=== PATIENT | female | born 1990 | race Caucasian/White ===

== ENCOUNTER 2021-06-13 12:57 | Outpatient (REF) | payer OTHER, SELFPAY ==
[2021-06-16 01:45] LABS: HPV mRNA E6/E7 Not Detected (Not Detected)
== END 2021-06-13 12:58 | disposition home or self-care (01) ==
LOC: HO.LAB 12:57
PROVIDERS: Visit Provider Obstetrics & Gynecology
DX: Z01.419 Encounter for gynecological examination (general) (routine) without abnormal findings (principal)
CPT/HCPCS: 87624; 88142

== ENCOUNTER 2023-11-27 09:37 | Outpatient (AMB) | payer OTHER, SELFPAY ==
--- NOTE | 2023-11-27 09:45 | MHC.OFFVIS ---
Vital Signs 11/27/23 09:46 Height 5 ft 5 in Weight 187 lb BMI 31.1 BP 116/70 Intake Visit Reasons: irregular menses Medical Esthetician Required: No Medical Esthetician Services: Medical Esthetician Present Information Interpreted: clinical only Park Landscape Architect: Park Landscape Architect Present Allergies No Known Allergies [No Known Allergies*] Allergy (Verified 11/27/23 09:48) Medication List - Last Reconciled 11/27/23 by Sharri Mckeon CNM copper (ParaGard T 380A) intrauterine Is last menstrual period known: Yes Last menstrual period: 11/26/23 Do you need a note to return to daycare/school/sports/work: No HPI HPI irregular menses: Details: Patient is here to discuss her IUD and irregular menses. She has noticed her menses which used to be very regular becoming more irregular recently she went through her phone and gave me the dates of her menstrual cycles as follows for the last 6 months June 23 to July 24 to , arriving on day August 20 to arriving on day September 13 to arriving on day October 21 to arriving on day 39 November 25 yesterday arriving on day 32. PFSH Family History Paternal Grandmother Colon cancer Social History Patient Tobacco Use Status: Never used Tobacco Female Reproductive History Menstrual Age of Menarche: 9 Duration of menses: other Date of last menstrual period: 11/26/23 control method: copper IUCD Total pregnancies: 2 Full term: 1 Date of last pap smear: 06/14/21 (negative) Physical Exam Vital Signs: Last Vital Signs BP 116/70 11/27/23 09:46 BMI result Body Mass Index 31.1 Assessment & Plan Assessment & Plan (1) IUD complication: Comment: [facility] Menses have become more irregular intermenstrual spotting and some pain and discomfort recently. Code(s): T83.9XXA - Unspecified complication of genitourinary prosthetic device, implant and graft, initial encounter Category: Medical (2) Menstrual periods irregular: Comment: Last 6 months cycles ranging from 25-39 days average 29-32. Code(s): N92.6 - Irregular menstruation, unspecified Category: Medical (3) H/O ovulatory bleeding: Code(s): Z87.42 - Personal history of other diseases of the female genital tract Category: Medical (4) Pelvic pain: Comment: Recent discomfort has ParaGard IUD Code(s): R10.2 - Pelvic and perineal pain Category: Medical Plan Discussed her history and symptoms at length. She has the ParaGard IUDs since [facility] (which when she mentioned did today brought her to tears.) She does have a therapist and will explore feelings about that with her. She has been noticing her periods becoming more regular and the. More recently that was 39 days in length had her most concerned she did get her period yesterday on day 32 of her cycle. She has also been having little bit more discomfort and also has occasionally had intermenstrual ovulatory spotting. She likes the ParaGard IUD because she Does not want hormones in her body her only other medication is CVD which she uses for control of seizures and the only time that she had a seizure in the last year about a year ago was when she was using her medication/CBD less regularly. She has in a new relationship for the last year and taking good care of herself and has lost weight and feels good she is lost about 30 lb. Discussed factors that could contribute to all of the above discussed some menstrual irregularity discussed in general that it is good that she has lost weight discussed that it would be wolfe to get an ultrasound to check on position of the IUD perhaps it is slipping down and that is why it has a little bit more uncomfortable and perhaps may account for some spotting if it is slipping down it needs to be replaced if that is what she would want for of methods and it is. She also was trying to get seen and had difficulty getting through the front office at the hospital however she also in time [facility] and I recommend she keep that appointment but in the meantime I am ordering an ultrasound hopefully that will be done urgently within the next week or so and then she and I can either tele visit after to review if she can get a [facility] sooner that is all to the good she would need to otherwise sign a form here to order a new 1 but since we do not know that that has the issue at this point we did not act on it today although it was offered. We will have a tele visit after the ultrasound.. Orders: Orders US pelvic and transvaginal Today T83.9XXA - Unspecified complication of genitourinary prosthetic device, implant and graft, initial encounter Coding Level of Care Code Est Pt Level 3 (18091) Diagnoses IUD complication T83.9XXA Menstrual periods irregular N92.6 H/O ovulatory bleeding Z87.42 Pelvic pain R10.2
[2023-11-27 09:46] VITALS: BP 116/70; BMI 31.1
== END 2023-11-27 10:46 | disposition home or self-care (01) ==
LOC: HO.HWSM 09:37
PROVIDERS: Visit Provider Advanced Practice Midwife
DX: T83.9XXA Unspecified complication of genitourinary prosthetic device, implant and graft, initial encounter (principal); N92.6 Irregular menstruation, unspecified; Z87.42 Personal history of other diseases of the female genital tract; R10.2 Pelvic and perineal pain
CPT/HCPCS: 99213

== ENCOUNTER → 2023-11-27 09:37 | Outpatient (BNVA) | payer OTHER, SELFPAY | PROVIDERS: Visit Provider Advanced Practice Midwife ==

== ENCOUNTER 2023-11-29 11:44 | Outpatient (REF) | payer OTHER, SELFPAY ==
--- NOTE | ~2023-11-29 | US_ITS ---
EXAMINATION: ULTRASOUND PELVIC, COMPLETE CLINICAL INFORMATION: Additional Notes/Special Instructions Has ParaGard IUDs since 2020 recently has some more discomfort and menses becoming more irregular. Please do within next week. : COMPARISON: None. TECHNIQUE: Pelvic ultrasound was performed using transvaginal and transabdominal technique without spectral doppler. FINDINGS: The uterus appears normal measuring 8.9 x 4.3 x 5.0 cm. There is an IUD that appears appropriately positioned. The right ovary appears normal measuring 3.9 x 1.9 x 2.7 cm. The left ovary appears normal measuring 3.5 x 2.5 x 3.2 cm. No free fluid. US/US pelvic and transvaginal IMPRESSION: The IUD appears appropriately positioned.
== END 2023-11-29 11:45 | disposition home or self-care (01) ==
LOC: HO.US 11:44
PROVIDERS: Visit Provider Advanced Practice Midwife
DX: T83.9XXA Unspecified complication of genitourinary prosthetic device, implant and graft, initial encounter (principal)
CPT/HCPCS: 76830; 76856

== ENCOUNTER 2023-12-05 13:00 | Outpatient (AMB) | payer OTHER, SELFPAY ==
--- NOTE | 2023-12-05 13:00 | A.OFFVIS_ITS ---
Intake Visit Reasons: TV Ultrasound Follow up Allergies No Known Allergies [No Known Allergies*] Allergy (Verified 12/05/23 13:00) Is last menstrual period known: Yes Last menstrual period: 12/22/23 HPI HPI TV Ultrasound Follow up: Details: Patient is and a tele visit to discuss her ultrasound results which was done to investigate intermenstrual bleeding with ovulation and to see really if her IUD had become dislodged she has a ParaGard IUD she was seen on Sunday last week the ultrasound was done and this is the visit to review it. PFSH Family History Paternal Grandmother Colon cancer Social History Patient Tobacco Use Status: Never used Tobacco Female Reproductive History Menstrual Age of Menarche: 9 Date of last menstrual period: 12/22/23 control method: copper IUCD Telehealth Telehealth Telehealth Platform: Telephone Location of provider rendering services: practice address Location of patient: other (Patient was actually outside the hospital the [facility]...) Patient Identification confirmed using: Name, : Yes Telehealth method: voice only Patient verbally consented to treatment: Yes Patient verbally consented to billing insurance company: Yes Patient informed of any privacy concerns related to visit: Yes Minutes spent on Phone/Video with Pt.: 20 Results Reviewed Results Reviewed: Patient: Joseph Irby MR#: [id number] : 1990 Acct:[id number] Age/Sex: 33 / F ADM/SER Date: 11/27/23 Loc: [facility] ADM/SER Time:936 Attending Provider: Sharri Mckeon CNM cc: Physician,None ~ Vital Signs 11/26/2408:46 Height 5 ft 5 in Weight 187 lb BMI 31.1 BP 116/70 Intake Visit Reasons: irregular menses Transaction Coordinator Required: No Transaction Coordinator Services: Transaction Coordinator Present Information Interpreted: clinical only Cottage Cheese Maker: Cottage Cheese Maker Present Allergies No Known Allergies [No Known Allergies*] Allergy (Verified 11/27/23 09:48) Medication List - Last Reconciled 11/27/23 by Sharri Mckeon CNM copper (ParaGard T 380A) intrauterine Is last menstrual period known: Yes Last menstrual period: 11/26/23 Do you need a note to return to daycare/school/sports/work: No HPI HPI irregular menses: Details: Patient is here to discuss her IUD and irregular menses. She has noticed her menses which used to be very regular becoming more irregular recently she went through her phone and gave me the dates of her menstrual cycles as follows for the last 6 months June 23 to July 24 to , arriving on day August 20 to arriving on day September 13 to arriving on day October 21 to arriving on day 39 November 25 yesterday arriving on day 32. PFSH Family History Paternal Grandmother Colon cancer Social History Patient Tobacco Use Status: Never used Tobacco Female Reproductive History Menstrual Age of Menarche: 9 Duration of menses: other Date of last menstrual period: 11/26/23 control method: copper IUCD Total pregnancies: 2 Full term: 1 Date of last pap smear: 06/14/21 (negative) Physical Exam Vital Signs: Last Vital Signs BP 116/70 11/27/23 09:46 BMI result Body Mass Index 31.1 Assessment & Plan Assessment & Plan (1) IUD complication: Comment: [facility] Menses have become more irregular intermenstrual spotting and some pain and discomfort recently. Code(s): T83.9XXA - Unspecified complication of genitourinary prosthetic device, implant and graft, initial encounter Category: Medical (2) Menstrual periods irregular: Comment: Last 6 months cycles ranging from 25-39 days average 29-32. Code(s): N92.6 - Irregular menstruation, unspecified Category: Medical (3) H/O ovulatory bleeding: Code(s): Z87.42 - Personal history of other diseases of the female genital tract Category: Medical (4) Pelvic pain: Comment: Recent discomfort has ParaGard IUD Code(s): R10.2 - Pelvic and perineal pain Category: Medical Plan Discussed her history and symptoms at length. She has the ParaGard IUDs since [facility] (which when she mentioned did today brought her to tears.) She does have a therapist and will explore feelings about that with her. She has been noticing her periods becoming more regular and the. More recently that was 39 days in length had her most concerned she did get her period yesterday on day 32 of her cycle. She has also been having little bit more discomfort and also has occasionally had intermenstrual ovulatory spotting. She likes the ParaGard IUD because she Does not want hormones in her body her only other medication is CVD which she uses for control of seizures and the only time that she had a seizure in the last year about a year ago was when she was using her medication/CBD less regularly. She has in a new relationship for the last year and taking good care of herself and has lost weight and feels good she is lost about 30 lb. Discussed factors that could contribute to all of the above discussed some menstrual irregularity discussed in general that it is good that she has lost weight discussed that it would be wolfe to get an ultrasound to check on position of the IUD perhaps it is slipping down and that is why it has a little bit more uncomfortable and perhaps may account for some spotting if it is slipping down it needs to be replaced if that is what she would want for of methods and it is. She also was trying to get seen and had difficulty getting through the front office at the hospital however she also in time [facility] and I recommend she keep that appointment but in the meantime I am ordering an ultrasound hopefully that will be done urgently within the next week or so and then she and I can either tele visit after to review if she can [facility] a [facility] that is all to the good she would need to otherwise sign a form here to order a new 1 but since we do not know that that has the issue at this point we did not act on it today although it was offered. We will have a tele visit after the ultrasound.. Orders: Orders US pelvic and transvaginal Today T83.9XXA - Unspecified complication of genitourinary prosthetic device, implant and graft, initial encounter Coding Level of Care Code Est Pt Level 3 (11203) Diagnoses IUD complication T83.9XXA Menstrual periods irregular N92.6 H/O ovulatory bleeding Z87.42 Pelvic pain R10.2 Documented By: Sharri Mckeon CNM 11/27/23 0945 Signed By: <Electronically signed by Sharri Mckeon> --- [address] [address] Ultrasound Report Signed Patient: Joseph Irby MR#: [id number] : 1990 Acct:[id number] Age/Sex: 33 / F ADM Date: 11/29/23 Loc: .[place] Attending Dr: Sharri Mckeon CNM Ordering Physician: Sharri Mckeon CNM Date of Service: 11/29/23 Procedure(s): US pelvic and transvaginal Accession Number(s): [id number] cc: Sharri Mckeon CNM~ EXAMINATION: ULTRASOUND PELVIC, COMPLETE CLINICAL INFORMATION: Additional Notes/Special Instructions Has ParaGard IUDs since 2020 recently has some more discomfort and menses becoming more irregular. Please do within next week. : COMPARISON: None. TECHNIQUE: Pelvic ultrasound was performed using transvaginal and transabdominal technique without spectral doppler. FINDINGS: The uterus appears normal measuring 8.9 x 4.3 x 5.0 cm. There is an IUD that appears appropriately positioned. The right ovary appears normal measuring 3.9 x 1.9 x 2.7 cm. The left ovary appears normal measuring 3.5 x 2.5 x 3.2 cm. No free fluid. US/US pelvic and transvaginal IMPRESSION: The IUD appears appropriately positioned. Dictated By: Timur Mazariegos MD Signed By: <Electronically signed by Timur Mazariegos MD in OV> 11/29/23 1510 DD/ 1210 TD/TT: Field Mechanical Meter Tester: KENISHA Assessment & Plan Assessment & Plan (1) H/O ovulatory bleeding: Code(s): Z87.42 - Personal history of other diseases of the female genital tract Category: Medical (2) IUD complication: Comment: [facility]Gard [facility] Menses have become more irregular intermenstrual spotting and some pain and discomfort recently. IUD IS IN PROPER POSITION FOR 11/28 ULTRASOUND. PATIENT IS FINE.... Code(s): T83.9XXA - Unspecified complication of genitourinary prosthetic device, implant and graft, initial encounter Category: Medical Plan REVIEWED HER ULTRASOUND IN THE VISIT IN HER ISSUES IN DETAIL. Discussed planning for future pregnancies and removal of the IUD when she is ready and discussed have exactly how we do it. Her ultrasound shows that her uterus her ovaries and position of the IUD is absolutely the way it needs to be. Discussed readiness and self-care. She is going to schedule an annual exam coming up and she will [facility] which she also had on the books just in case we could not see her in time and she did the IUD to be removed quickly. We will see her for an annual and Pap whenever it is convenient. Coding Level of Care Code Tele Est Pt Level 3 (15343) Diagnoses H/O ovulatory bleeding Z87.42 IUD complication T83.9XXA
== END 2023-12-05 13:41 | disposition home or self-care (01) ==
LOC: HO.HWSM 13:00
PROVIDERS: Visit Provider Advanced Practice Midwife
DX: Z87.42 Personal history of other diseases of the female genital tract (principal); T83.9XXA Unspecified complication of genitourinary prosthetic device, implant and graft, initial encounter
CPT/HCPCS: 99213

== ENCOUNTER → 2023-12-05 13:00 | Outpatient (BNVA) | payer OTHER, SELFPAY | PROVIDERS: Visit Provider Advanced Practice Midwife ==

== ENCOUNTER 2024-07-11 09:05 | Emergency (ER) | payer MEDICAID, SELFPAY ==
--- NOTE | 2024-07-11 | ECG_ITS ---
Test Reason : SEIZURE Blood Pressure : */* mmHG Vent. Rate : 96 BPM Atrial Rate : 96 BPM P-R Int : 132 ms QRS Dur : 86 ms QT Int : 348 ms P-R-T Axes : 46 32 47 degrees QTcB Int : 439 ms Normal sinus rhythm Normal ECG When compared with ECG of 07-Sep-2017 12:41, Nonspecific T wave abnormality no longer evident in Anterior leads Referred By: Generic ED Physician Electronically Signed By: Vance Driver
--- NOTE | ~2024-07-11 | CT_ITS ---
EXAMINATION: CT HEAD WITHOUT CONTRAST CLINICAL INFORMATION: Seizure, fall. COMPARISON: 01/04/2013. MR brain 10/14/2017. TECHNIQUE: Contiguous axial imaging was performed from the skull base to vertex without intravenous administration of contrast. This CT examination was performed using dose optimization techniques as appropriate, variously including the following: *Automated exposure control *Adjustment of mA and/or kV according to patient size (this includes techniques or standardized protocols for targeted exams where dose is matched to indication/reason for exam; i.e. extremities or head) *Use of iterative reconstruction technique FINDINGS: There is no evidence of intracranial hemorrhage or extra-axial fluid collection. There is no mass effect, or edema. No CT evidence of acute territorial infarct. Ventricles, sulci, and cisterns are normal in size and configuration for patient age. No hydrocephalus. No midline shift. Negative hyperdense MCA sign. Negative insular ribbon sign. No significant white matter abnormalities. 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 Normal pituitary. Globes and orbital contents image normally. No extracranial soft tissue abnormalities. The paranasal sinuses, mastoid air cells, and tympanic cavities are normally aerated. No suspicious bony abnormalities. There are no acute fractures evident. CT/CT head/brain wo IV con IMPRESSION: 1. No acute intracranial abnormality. No fracture seen. 2. Stable pineal cyst, benign. Electronically signed by: Garett Velazquez MD 07/11/2024 11:53 AM [facility]
--- NOTE | ~2024-07-11 | CT_ITS ---
EXAMINATION: CT CERVICAL SPINE WITHOUT CONTRAST CLINICAL INFORMATION: Status post fall. Seizure. COMPARISON: None available. TECHNIQUE: Contiguous axial images through the cervical spine using 3 mm collimation with bone and soft tissue algorithm. Sagittal and coronal reformatted images acquired. This CT examination was performed using dose optimization techniques as appropriate, variously including the following: *Automated exposure control *Adjustment of mA and/or kV according to patient size (this includes techniques or standardized protocols for targeted exams where dose is matched to indication/reason for exam; i.e. extremities or head) *Use of iterative reconstruction technique DLP: 390.32 mGy centimeters FINDINGS: Craniocervical junction is intact. C1 is intact. C2 is intact. C3 is intact. C4 is intact. C5 is intact. C6 is intact. C7 is intact. Reverse curvature apex at C5-6 which could be positional. Normal alignment between the vertebral bodies and the facet joints. No gross prevertebral compartment hematoma. The thyroid gland is not enlarged. No gross dominant nodule.. CT/CT cervical spine wo IV con IMPRESSION: No acute fracture or trauma-related listhesis Fleischner guidelines were followed. Electronically signed by: Joshua Sadler MD 07/11/2024 11:55 AM [facility]
[2024-07-11 09:10] VITALS: BP 138/93; PULSE 124; O2SAT 96; BMI 35.7
[2024-07-11 09:16] VITALS: BP 120/78; PULSE 101; RESP 98; TEMP 36.6; O2SAT 100
[2024-07-11 09:29] LABS: MANUAL DIFF FLAG NO
[2024-07-11 09:30] LABS: Basophils Percent Auto 0.5 % (0-2); Eosinophils Absolute Auto 0.4 X10*3/uL (0.0-0.4); Eosinophils Percent Auto 6.5 % (0-4); Hematocrit 40.9 % (37.0-47.0); Hemoglobin 13.9 g/dl (12.0-16.0); Imm Gran Abs Auto 0.01 X10*3/uL (0.00-0.03); Imm Gran Pct Auto 0.2 % (0.0-0.4); Lymphocytes Absolute Auto 1.8 X10*3/uL (1.2-4.9); Lymphocytes Percent Auto 29.9 % (20-40); Mean Corpuscular Hemoglobin 32.1 pg (27.0-33.0); Mean Corpuscular Volume 94.5 fL (80.0-98.0); Mean Platelet Volume 8.3 fL (9.4-12.3); Monocytes Absolute Auto 0.4 X10*3/uL (0.1-1.2); Monocytes Percent Auto 7.5 % (2-11); Neutrophils Absolute Auto 3.3 x10*3/uL (2.0-8.3); Neutrophils Percent Auto 55.4 % (45-73); Platelet Count 318 X10*3/uL (160-400); Red Blood Count 4.33 X10*6/uL (4.20-5.50); Red Cell Distribution Width 13.1 % (11.0-16.0); White Blood Count 5.9 X10*3/uL (4.8-10.8)
[2024-07-11 09:54] LABS: Alanine Aminotransferase 20 U/L (0-31); Albumin Level 3.8 g/dL (3.5-5.0); Alkaline Phosphatase 43 U/L (39-117); Anion Gap 13 (12-20); Aspartate Amino Transferase 31 U/L (5-31); Bilirubin Direct < 0.2 mg/dL (0.0-0.5); Bilirubin Total 0.2 mg/dL (0.0-1.0); Blood Urea Nitrogen 13 mg/dL (9-16); Calcium 8.3 mg/dL (8.4-10.2); Carbon Dioxide 16 mmol/L (22-29); Chloride 112 mmol/L (96-108); Estimated Glomerular Filt Rate > 60; Glucose Random 95 mg/dL (60-115); Magnesium 2.2 mg/dL (1.6-2.6); Potassium 4.3 mmol/L (3.3-5.1); Sodium 137 mmol/L (135-145); Total Protein 6.9 g/dL (6.5-8.0)
[2024-07-11 09:59] VITALS: BP 120/80; PULSE 84; RESP 16; O2SAT 99
[2024-07-11 09:59] LABS: HCG Quantitative < 2 mIU/mL
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
--- NOTE | 2024-07-11 11:12 | ED_ITS ---
HPI - General Adult General Chief complaint: Seizure Stated complaint: KAITY SEIZURE HX OF SEIZURE NO MEDS PER EMS Time Seen by Provider: 07/11/24 11:07 Source: patient, family (patient's boyfriend) and EMS Mode of arrival: EMS Limitations: no limitations History of Present Illness ED Provider: Yajaira Lundy PA-C HPI narrative: Patient is a 33 year old assigned female at with a history of seizures controlled by CBD presenting to the emergency department today after a seizure. Patient states that this was her first seizure in 2 years. Patient states that when she was previously having these seizures it was usually associated with drinking or lack there of. Patient states that she saw a neurologist previously who told her to take CBD. Patient states that she has not been taking it as prescribed but has been sober from alcohol for 2 weeks. Patient states that she was getting her children ready when she seized and the patient's boyfriend had to help her to the ground. Patient denies any dizziness, lightheadedness, abdominal pain, nausea, vomiting, fever, chills, blurry vision, double vision, loss of vision, chest pain, difficulty breathing, shortness of breath, back pain, night sweats, pain with urination, increased urinary frequency, increased urinary urgency, blood in her urine or stool, syncope or a near syncopal episode, recent trauma or falls, bowel incontinence, bladder incontinence, or any other complaints at this time. Relieving factors: none Exacerbating factors: none Associated symptoms: denies other symptoms Treatments prior to arrival: none Related Data Home Medications ?Medication ?Instructions ?Recorded ?Confirmed copper 380 square mm intrauterine intrauterine 06/13/21 11/27/23 device (ParaGard T 380A) Allergies Allergy/AdvReac Type Severity Reaction Status Date / Time No Known Allergies Allergy Verified 07/11/24 09:12 [No Known Allergies*] Review of Systems 2 Constitutional: Constitutional: Reports no additional constitutional complaints, Denies chills, Denies fever(s) and Denies night sweats Eyes: Eyes: Reports no additional eye complaints, Denies blurry vision, Denies change in vision, Denies diplopia, Denies eye discharge, Denies loss of vision and Denies eye pain ENT: Denies dizziness Cardiovascular: Cardiovascular: Reports no additional cardiovascular complaints, Denies chest pain, Denies lightheadedness, Denies Loss of Consciousness and Denies dyspnea Respiratory: Respiratory: Reports no additional respiratory complaints and Denies dyspnea Gastrointestinal: Gastrointestinal: Reports no additional gastrointestinal complaints, Denies abdominal pain, Denies melena, Denies hematochezia, Denies change in bowel habits and Denies change in stool character Genitourinary: Genitourinary: Denies hematuria, Denies urinary frequency, Denies dysuria, Denies urinary incontinence, Denies urinary hesitancy and Denies urinary urgency Musculoskeletal: Musculoskeletal: Reports no additional musculoskeletal complaints, Denies numbness and Denies tingling Neurologic: Denies dizziness, Denies loss of vision, Denies numbness, Reports seizure-like activity and Denies tingling Psychiatric: Psychiatric: Reports no additional psychiatric complaints Endocrine: Endocrine: Reports no additional endocrine complaints Hematologic/Lymphatic: Hematologic/Lymphatic: Reports no additional hematologic/lymphatic complaints Allergic/Immunologic: Allergic/Immunologic: Reports no additional allergic/immunologic complaints PMFSH Past Medical History Attestation statement: The following information was validated with the patient. (all information validated with the patient's boyfriend) Source: old records reviewed, nursing notes reviewed and other (patient's boyfriend provided additional history and confirmed the history provided by the patient.) Family History Family History Paternal Grandmother Colon cancer Social History Social History Alcohol intake: current Alcohol intake frequency: holidays/special occasions only Patient Tobacco Use Status: Never used Tobacco Physical Exam ED Vital Signs: Vital Signs - 24 hr 07/11/24 09:16 07/11/24 09:59 07/11/24 14:12 Temperature 97.8 F 97.9 F Pulse Rate 101 H 84 76 Respiratory Rate 98 H 16 16 Blood Pressure 120/78 120/80 118/81 Pulse Oximetry 100 99 98 Oxygen Delivery Method Room Air Room Air Room Air 07/11/24 15:29 Temperature 97.9 F Pulse Rate 76 Respiratory Rate 16 Blood Pressure 118/81 Pulse Oximetry 98 Oxygen Delivery Method Room Air BMI result Body Mass Index 35.7 Const General: cooperative, no acute distress, alert and awake Nutritional Appearance: well nourished Orientation/consciousness: patient oriented x3 Limitations: no limitations HENMT Head: Yes normal to inspection and Yes atraumatic Ears: hearing grossly normal bilaterally and external ears normal General nose exam: Normal external nose present, no nasal discharge noted and no epistaxis Face and sinus: Yes normal facial exam, No abrasion and No laceration Mouth: Normal oral and palatal mucosa present, no drooling and no muffled voice Mouth/tongue images: 2 1. abrasion - no open areas or active bleeding Eyes General: appearance normal, both eyes and all related structures Periorbital: periorbital findings normal Eyelids: Yes eyelids normal Conjunctivae: conjunctivae normal Pupils: Equal, round and reactive pupils present EOM: EOMs intact bilaterally Neck Neck: Yes normal visual inspection, Yes full ROM and Yes no lymphadenopathy Chest Chest palpation & inspection: normal inspection of the chest Resp Effort & Inspection: normal respiratory effort and able to speak in complete sentences GI Inspection: Yes normal to inspection Neuro General: patient oriented x3, moves all extremities and CN's II-XI intact bilaterally Cranial nerves: Yes Equal, round and reactive pupils present Cognition (Neuro): normal cognition Extrem General: Yes normal to inspection, Yes full ROM and Yes capillary refill normal Psych Appearance: grossly normal Mental Status: mental status grossly normal Affect: normal affect Attitude: cooperative Thought process: Normal thought process present Thought content: Normal thought content present Insight: Good insight present (Psych) Medications Administered Discontinued Medications Generic Name Dose Route Start Last Admin Trade Name Freq PRN Reason Stop Dose Admin Sodium Chloride 1,000 mls @ 999 mls/hr 07/11/24 11:15 07/11/24 12:36 Ns IV 07/11/24 12:15 Infused .Q1H1M JOSE Infusion Levetiracetam 1,000 mg in 100 mls @ 400 mls/hr 07/11/24 11:13 07/11/24 11:49 Keppra IV 07/11/24 11:27 Infused ONCE ONE Infusion Sodium Chloride 1,000 mls @ 999 mls/hr 07/11/24 11:30 07/11/24 12:36 Ns IV 07/11/24 12:30 Infused .Q1H1M JOSE Infusion Medical Decision Making Medical Decision Making MDM Narrative: Patient is a 33 year old assigned female at with a history of seizures controlled by CBD presenting to the emergency department today after a seizure. Patient's physical exam was as noted in the physical exam portion of this note. Patient's blood work showed a lactic acid of 5.0, consistent with a seizure. Patient received 2 liters of fluid and her repeat lactic acid was 0.8. Patient's urine showed no acute process. Patient's EKG was unremarkable. Patient's CT head and c-spine showed no acute process. I explained my physical exam findings as well as all test results to the patient and the patient's boyfriend. I answered all questions asked by the patient and the patient's boyfriend. Patient's clinical presentation is most consistent with a seizure secondary to acute stress and recent sobriety. I stressed the importance of the patient taking her medication as directed (either prescribed or as the over the counter packaging recommends). I stressed the importance of the patient following up with her primary care provider and a neurologist. I stressed the importance of the patient returning to the emergency department immediately if her symptoms were to worsen or if she were to develop any dizziness, shortness of breath, difficulty breathing, chest pain, blurry vision, loss of vision, nausea, vomiting, abdominal pain, fever, chills, back pain, or any other complaints. Patient verbalized agreement and understanding with this treatment plan and discharge. Differential Diagnosis Differential Diagnoses: The differential diagnosis associated with the presentation includes Seizure Breakthrough seizure Stress induced seizure Admission/Observation Consideration of admission/observation: Escalation of care including admission/observation considered Patient would have been admitted to the hospital had her work up had any findings where hospital admission was appropriate and her clinical presentation warranted hospital admission. Lab Data [facility] Lab Attestation statement: I reviewed the patient's lab results. My interpretation of these results are in the [facility] Rationale portion of this note. 07/11/24 09:24 07/11/24 09:24 Labs: Lab Results 07/11/24 07/11/24 07/11/24 Range/Units 09:24 11:35 11:46 WBC 5.9 (4.8-10.8) X10*3/uL RBC 4.33 (4.20-5.50) X10*6/uL Hgb 13.9 (12.0-16.0) g/dl Hct 40.9 (37.0-47.0) % MCV 94.5 (80.0-98.0) fL MCH 32.1 (27.0-33.0) pg MCHC 34.0 (31.0-35.0) g/dl RDW 13.1 (11.0-16.0) % Plt Count 318 (160-400) X10*3/uL MPV 8.3 L (9.4-12.3) fL Immature Gran % (Auto) 0.2 (0.0-0.4) % Neut % (Auto) 55.4 (45-73) % Lymph % (Auto) 29.9 (20-40) % [place] % (Auto) 7.5 (2-11) % Eos % (Auto) 6.5 H (0-4) % Baso % (Auto) 0.5 (0-2) % Lymph # (Auto) 1.8 (1.2-4.9) X10*3/uL [place] # (Auto) 0.4 (0.1-1.2) X10*3/uL Eos # (Auto) 0.4 (0.0-0.4) X10*3/uL Baso # (Auto) 0.0 (0.0-0.2) X10*3/uL Abs Immat Gran (auto) 0.01 (0.00-0.03) X10*3/uL Absolute Neuts (auto) 3.3 (2.0-8.3) x10*3/uL Absolute Nucleated RBC 0.000 (0.0-0.012) X10*3/uL Nucleated RBC % (auto) 0.0 (0.0-0.2) /100WBC Sodium 137 (135-145) mmol/L Potassium 4.3 (3.3-5.1) mmol/L Chloride 112 H (96-108) mmol/L Carbon Dioxide 16 L (22-29) mmol/L Anion Gap 13 (12-20) BUN 13 (9-16) mg/dL Creatinine 0.76 (0.5-1.4) mg/dL Estim Creat Clear Calc 115.0 Estimated GFR > 60 Random Glucose 95 (60-115) mg/dL Lactic Acid 5.0 H* (0.5-2.0) mmol/L Lactic Acid F/U @ 2Hr (0.5-2.0) mmol/L Calcium 8.3 L (8.4-10.2) mg/dL Magnesium 2.2 (1.6-2.6) mg/dL Total Bilirubin 0.2 (0.0-1.0) mg/dL Direct Bilirubin < 0.2 (0.0-0.5) mg/dL AST 31 (5-31) U/L ALT 20 (0-31) U/L Alkaline Phosphatase 43 (39-117) U/L Ammonia 38 (13-55) umol/L Total Protein 6.9 (6.5-8.0) g/dL Albumin 3.8 (3.5-5.0) g/dL Beta HCG, Quant < 2 mIU/mL Urine Color Yellow Urine Appearance Clear Urine pH 7.5 (5.0-9.0) Ur Specific [place] <= 1.005 (1.005-1.025) Urine Protein Negative (Neg-Trace) mg/dL Urine Glucose (UA) Negative (Negative) mg/dL Urine Ketones Negative (Negative) mg/dL Urine Blood Negative (Negative) Urine Nitrite Negative (Negative) Ur Leukocyte Esterase Trace H (Negative) Urine RBC 0-2 (0-2) /HPF Urine WBC 0-5 (0-5) /HPF Ur Squamous Epith Cells 0-2 (0-2) /HPF Urine Bacteria None Seen (None Seen) Hyaline Casts 0-2 (0-2) /LPF 07/11/24 Range/Units 14:13 WBC (4.8-10.8) X10*3/uL RBC (4.20-5.50) X10*6/uL Hgb (12.0-16.0) g/dl Hct (37.0-47.0) % MCV (80.0-98.0) fL MCH (27.0-33.0) pg MCHC (31.0-35.0) g/dl RDW (11.0-16.0) % Plt Count (160-400) X10*3/uL MPV (9.4-12.3) fL Immature Gran % (Auto) (0.0-0.4) % Neut % (Auto) (45-73) % Lymph % (Auto) (20-40) % [place] % (Auto) (2-11) % Eos % (Auto) (0-4) % Baso % (Auto) (0-2) % Lymph # (Auto) (1.2-4.9) X10*3/uL [place] # (Auto) (0.1-1.2) X10*3/uL Eos # (Auto) (0.0-0.4) X10*3/uL Baso # (Auto) (0.0-0.2) X10*3/uL Abs Immat Gran (auto) (0.00-0.03) X10*3/uL Absolute Neuts (auto) (2.0-8.3) x10*3/uL Absolute Nucleated RBC (0.0-0.012) X10*3/uL Nucleated RBC % (auto) (0.0-0.2) /100WBC Sodium (135-145) mmol/L Potassium (3.3-5.1) mmol/L Chloride (96-108) mmol/L Carbon Dioxide (22-29) mmol/L Anion Gap (12-20) BUN (9-16) mg/dL Creatinine (0.5-1.4) mg/dL Estim Creat Clear Calc Estimated GFR Random Glucose (60-115) mg/dL Lactic Acid (0.5-2.0) mmol/L Lactic Acid F/U @ 2Hr 0.8 (0.5-2.0) mmol/L Calcium (8.4-10.2) mg/dL Magnesium (1.6-2.6) mg/dL Total Bilirubin (0.0-1.0) mg/dL Direct Bilirubin (0.0-0.5) mg/dL AST (5-31) U/L ALT (0-31) U/L Alkaline Phosphatase (39-117) U/L Ammonia (13-55) umol/L Total Protein (6.5-8.0) g/dL Albumin (3.5-5.0) g/dL Beta HCG, Quant mIU/mL Urine Color Urine Appearance Urine pH (5.0-9.0) Ur Specific [place] (1.005-1.025) Urine Protein (Neg-Trace) mg/dL Urine Glucose (UA) (Negative) mg/dL Urine Ketones (Negative) mg/dL Urine Blood (Negative) Urine Nitrite (Negative) Ur Leukocyte Esterase (Negative) Urine RBC (0-2) /HPF Urine WBC (0-5) /HPF Ur Squamous Epith Cells (0-2) /HPF Urine Bacteria (None Seen) Hyaline Casts (0-2) /LPF Independent Interpretation I performed an independent interpretation of an: EKG and CT Scan Interpretation: My interpretation is in agreement with the radiologist's impression of these imaging studies. L Report Number: [id number]: Total DLP = 704.00 mGy-cm EXAMINATION: CT HEAD WITHOUT CONTRAST CLINICAL INFORMATION: Seizure, fall. COMPARISON: 01/04/2013. MR brain 10/14/2017. TECHNIQUE: Contiguous axial imaging was performed from the skull base to vertex without intravenous administration of contrast. This CT examination was performed using dose optimization techniques as appropriate, variously including the following: *Automated exposure control *Adjustment of mA and/or kV according to patient size (this includes techniques or standardized protocols for targeted exams where dose is matched to indication/reason for exam; i.e. extremities or head) *Use of iterative reconstruction technique FINDINGS: There is no evidence of intracranial hemorrhage or extra-axial fluid collection. There is no mass effect, or edema. No CT evidence of acute territorial infarct. Ventricles, sulci, and cisterns are normal in size and configuration for patient age. No hydrocephalus. No midline shift. Negative hyperdense MCA sign. Negative insular ribbon sign. No significant white matter abnormalities. 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 Normal pituitary. Globes and orbital contents image normally. No extracranial soft tissue abnormalities. The paranasal sinuses, mastoid air cells, and tympanic cavities are normally aerated. No suspicious bony abnormalities. There are no acute fractures evident. CT/CT head/brain wo IV con IMPRESSION: 1. No acute intracranial abnormality. No fracture seen. 2. Stable pineal cyst, benign. Electronically signed by: Garett Velazquez MD 07/11/2024 11:53 AM [facility] Dictated By: Garett Velazquez MD Signed By: Electronically signed by Garett Velazquez MD 07/11/24 1153 Report Number: [id number]: Total DLP = 390.00 mGy-cm EXAMINATION: CT CERVICAL SPINE WITHOUT CONTRAST CLINICAL INFORMATION: Status post fall. Seizure. COMPARISON: None available. TECHNIQUE: Contiguous axial images through the cervical spine using 3 mm collimation with bone and soft tissue algorithm. Sagittal and coronal reformatted images acquired. This CT examination was performed using dose optimization techniques as appropriate, variously including the following: *Automated exposure control *Adjustment of mA and/or kV according to patient size (this includes techniques or standardized protocols for targeted exams where dose is matched to indication/reason for exam; i.e. extremities or head) *Use of iterative reconstruction technique DLP: 390.32 mGy centimeters FINDINGS: Craniocervical junction is intact. C1 is intact. C2 is intact. C3 is intact. C4 is intact. C5 is intact. C6 is intact. C7 is intact. Reverse curvature apex at C5-6 which could be positional. Normal alignment between the vertebral bodies and the facet joints. No gross prevertebral compartment hematoma. The thyroid gland is not enlarged. No gross dominant nodule.. CT/CT cervical spine wo IV con IMPRESSION: No acute fracture or trauma-related listhesis Fleischner guidelines were followed. Electronically signed by: Joshua Sadler MD 07/11/2024 11:55 AM [facility] Dictated By: Joshua Weathers MD Signed By: Electronically signed by Joshua Randolph MD 07/11/24 1155 Vent. Rate: 96 BPM Atrial Rate: 96 BPM P-R Int: 132 ms QRS Dur: 86 ms QT Int: 348 ms P-R-T Axes: 46 32 47 degrees QTcB Int: 439 ms Normal sinus rhythm Normal ECG When compared with ECG of 07-Sep-2017 12:41, Nonspecific T wave abnormality no longer evident in Anterior leads DD/ [id number] Radiology Impression Discussion of test interpretation with radiology: I have reviewed the radiologist's reading. Independent Historian Clinical information obtained from an independent historian. History obtained from or confirmed by: EMS (EMS provided additional history and confirmed the history provided by the patient.) and Other (Patient's boyfriend provided additional history and confirmed the history provided by the patient.) Critical Care Time Critical Care Time Critical Care Time: Yes Total Critical Care Time: 34 Attestation: I spent 34 minutes of Critical Care Time with this patient. This does not include time spent on separately reported billable procedures. Discharge Plan Discharge Clinical Impression: Seizure Patient Disposition: Home, Self-Care Instructions: Nonepileptic Seizures (DC) Additional Instructions: Take your CBD as prescribed. Follow up with your primary care provider and a neurologist. Continue your sobriety from alcohol. You should not drive until you are at least 6 months seizure free. Return to the emergency department immediately if your symptoms worsen or if you develop any dizziness, shortness of breath, difficulty breathing, chest pain, blurry vision, loss of vision, nausea, vomiting, abdominal pain, fever, chills, back pain, or any other complaints. Prescriptions: No Action ParaGard T 380A 380 square mm intrauterine device intrauterine Referrals: [facility] [place] Neuro/Sleep [Provider Group] (Call to establish and follow up with a neurologist. ) [facility] [Primary Care Provider] - Stand Alone Forms: Work/School Release Interventions: ED Discharge Assessment Last Done: 07/11/24 15:29 Discharge Date/Time: 07/11/24 15:30 Print Language: Cymro
[2024-07-11 11:27] LABS: Reflex Lactate? Lactic Acid Added
[2024-07-11] MEDS: levETIRAcetam in NaCl (iso-os) 1,000 MG/100 ML PIGGYBACK 400 MG IV (11:34)
[2024-07-11] MEDS: 0.9 % Sodium Chloride 1,000 ML 999 ML IV ×2 (11:35)
--- NOTE | 2024-07-11 11:41 | PC.NURSE ---
IVF/medication administered per provider order. will recollect repeat lactic s/p IVF infusion.
[2024-07-11 11:49] LABS: Ammonia 38 umol/L (13-55)
[2024-07-11 11:54] LABS: Appearance Urine Clear; Color Urine Yellow; Glucose Urine UA Negative (Negative); Leukocyte Esterase Urine Trace (Negative); Nitrite Urine Negative (Negative); PH 7.5 (5.0-9.0); Specific Gravity - Urine <= 1.005 (1.005-1.025); UMIC TRIGGER UACC YES; Urine Blood Negative (Negative); Urine Ketones Negative (Negative); Urine Protein Negative (Neg-Trace)
[2024-07-11 11:57] LABS: Bacteria Urine None Seen (None Seen); Hyaline Casts Urine 0-2 /LPF (0-2); RBC Urine 0-2 /HPF (0-2); Squamous Epithelial Cell Urine 0-2 /HPF (0-2); WBC Urine 0-5 /HPF (0-5)
[2024-07-11 14:12] VITALS: BP 118/81; PULSE 76; RESP 16; TEMP 36.6; O2SAT 98
--- NOTE | 2024-07-11 14:15 | PC.NURSE ---
IVF completely infused. repeat lactic obtained/sent to lab.
[2024-07-11 14:42] LABS: ~Lactic Acid-LAB USE ONLY 0.8 mmol/L (0.5-2.0)
[2024-07-11 15:29] VITALS: BP 118/81; PULSE 76; RESP 16; TEMP 36.6; O2SAT 98
== END 2024-07-11 15:30 | disposition home or self-care (01) ==
PROVIDERS: Physician Assistant Medical; Emergency Provider Emergency Medicine Emergency Medical Services
DX: R56.9 Unspecified convulsions (principal); R51.9 Headache, unspecified; M54.2 Cervicalgia; R11.0 Nausea; Z79.899 Other long term (current) drug therapy
CPT/HCPCS: 36415; 70450; 72125; 80053; 81001; 82140; 82248; 83605; 83735; 84702; 85025; 93005; 96361; 96374; 99284; 99285; J1953

== ENCOUNTER → 2024-07-11 09:47 | Outpatient (BNV) | payer MEDICAID, SELFPAY | PROVIDERS: Emergency Provider Emergency Medicine Emergency Medical Services; Visit Provider Internal Medicine Cardiovascular Disease | DX: R56.9 Unspecified convulsions (principal) | CPT/HCPCS: 93010 ==

== ENCOUNTER → 2024-07-11 11:13 | Outpatient (BNV) | payer MEDICAID, SELFPAY | PROVIDERS: Emergency Provider Emergency Medicine Emergency Medical Services; Visit Provider Radiology Diagnostic Radiology | DX: R56.9 Unspecified convulsions (principal); W19.XXXA Unspecified fall, initial encounter | CPT/HCPCS: 70450; 72125 ==

== ENCOUNTER 2024-08-11 06:59 | Emergency (ER) | payer OTHER, SELFPAY ==
--- NOTE | 2024-08-11 | ECG_ITS ---
Test Reason : seizure Blood Pressure : */* mmHG Vent. Rate : 104 BPM Atrial Rate : 104 BPM P-R Int : 134 ms QRS Dur : 80 ms QT Int : 352 ms P-R-T Axes : 38 35 31 degrees QTcB Int : 462 ms Sinus tachycardia Nonspecific T wave abnormality Abnormal ECG When compared with ECG of 11-Jul-2024 09:47, Nonspecific T wave abnormality now evident in Anterior leads Referred By: Generic ED Physician Electronically Signed By: MELE VALDES
--- NOTE | ~2024-08-11 | XR_ITS ---
EXAMINATION: XR SHOULDER 2 OR MORE VIEWS RIGHT HISTORY: pain post seizure COMPARISON: There are no prior studies available for comparison. FINDINGS: Three views of the right shoulder are submitted. Osseous mineralization is normal. There is no fracture or dislocation. The glenohumeral and acromioclavicular joint spaces are preserved. The soft tissues are unremarkable. XR/XR shoulder RT min 2V IMPRESSION: Unremarkable examination of the right shoulder. Electronically signed by: Yahir Hansen MD 08/11/2024 08:10 AM EDT
[2024-08-11 07:09] VITALS: BP 134/79; BP 146/98; PULSE 109; PULSE 120; RESP 18; TEMP 36.5; O2SAT 95; O2SAT 97
--- NOTE | 2024-08-11 07:47 | ED.SEIZURE ---
HPI - Seizure General Chief Complaint: Seizure Stated Complaint: seizure Time Seen by Provider: 08/11/24 07:42 Source: patient Mode of arrival: ambulatory Limitations: no limitations History of Present Illness HPI Narrative: 33-year-old female history of seizures which she controls with CBD oil patient hit her most recent surgery in July she was seen here she did not follow up with Neurology she had lab work done and was sent to follow-up she states her previous seizures were due to alcohol use or lack there of she had been sober for 2 weeks of the time she was seen last month she denies any recent drinking denies chest pain cough fever. She denies any new alcohol use she is now 6 weeks sober she does admit to using some cannabis this morning she did feel a bit off she did not bite her tongue she down his control of bowel or bladder and she was having lower herself to the ground. She did not follow up with the Neurology after her previous visit she does admit that she had been on Keppra in the past. MD complaint: seizure Related Data Home Medications ?Medication ?Instructions ?Recorded ?Confirmed copper 380 square mm intrauterine intrauterine 06/13/21 11/27/23 device (ParaGard T 380A) Previous Rx's ?Medication ?Instructions ?Recorded levetiracetam 500 mg tablet 500 mg PO BID #60 tabs 08/11/24 (Keppra) Allergies Allergy/AdvReac Type Severity Reaction Status Date / Time No Known Allergies Allergy Verified 08/11/24 07:11 [No Known Allergies*] Review of Systems Review of Systems: Review of systems: General: Patient denies any fever chills recent illness or falls Musculoskeletal: Denies back pain or body aches or other injuries HEENT: denies headache, runny nose, ear pain Respiratory: denies shortness of breath, cough Cardiovascular: no chest pain or palpitations : denies dysuria, frequency Abdomen: no nausea vomiting denies abdominal pain Extremities: no swelling, no pain Skin: no diaphoresis Yes all other systems are reviewed and are negative [facility] Family History Family History Paternal Grandmother Colon cancer Social History Social History Alcohol intake: current Alcohol intake frequency: holidays/special occasions only Patient Tobacco Use Status: Never used Tobacco Advance Directives: No Advance Directives Information Provided: Yes Do you have a plan to hurt others: No Plan Physical Exam Vital Signs: Vital Signs: Last Vital Signs Temp 97.7 F 08/11/24 07:09 Pulse 109 H 08/11/24 07:09 Resp 18 08/11/24 07:09 BP 134/79 08/11/24 07:09 Pulse Ox 95 08/11/24 07:09 O2 Del Method Room Air 08/11/24 07:09 BMI result Body Mass Index 30.0 Neurological exam: CN II- XII tested. Patient is alert and oriented to person place and time. Patient has no dysphagia or dysarthia, denies good vision in all four vision sweeney no nystagmus on exam, good strength to upper and lower extremities with normal reflexes to brachioradialis, wrist, patella and achilles. Negative romberg, good finger to nose and heel to kaufman. General: Well-appearing well-nourished in no signs of distress HEENT: Normocephalic atraumatic Neck: No signs of JVD, no masses no tenderness or lymphadenopathy Cardiovascular: Regular rate and rhythm Respiratory: Clear to auscultation bilaterally Abdomen: Soft nontender no masses Extremities: Normal pedal pulses no signs of edema Skin: Dry warm no rashes Back: No tenderness full ROM Course Course Course Narrative: X-ray and labs all normal patient is feeling much better patient did get loaded with Keppra I did send comfortable with the pharmacy to take twice a day until she can get in with a neurologist I will discharge the patient home at this time. Medications Administered Discontinued Medications Generic Name Dose Route Start Last Admin Trade Name Praveen PRN Reason Stop Dose Admin Levetiracetam 1,000 mg in 100 mls @ 400 mls/hr 08/11/24 07:59 08/11/24 09:08 Keppra IV 08/11/24 08:13 Infused ONCE ONE Infusion Medical Decision Making Medical Decision Making MDM Narrative: Concern for recurrent seizures likely not controlled well with CBD oil I will give the patient some Ativan check labs and reassess. Differential Diagnosis Differential Diagnoses: The differential diagnosis associated with the presentation includes I will check labs including an HCG lactic acid CBC CMP Admission/Observation Consideration of admission/observation: Escalation of care including admission/observation considered Lab Data 08/11/24 07:54 08/11/24 07:54 Labs: Lab Results 08/11/24 Range/Units 07:54 WBC 10.5 (4.8-10.8) X10*3/uL RBC 4.23 (4.20-5.50) X10*6/uL Hgb 13.2 (12.0-16.0) g/dl Hct 39.4 (37.0-47.0) % MCV 93.1 (80.0-98.0) fL MCH 31.2 (27.0-33.0) pg MCHC 33.5 (31.0-35.0) g/dl RDW 12.6 (11.0-16.0) % Plt Count 285 (160-400) X10*3/uL MPV 8.6 L (9.4-12.3) fL Immature Gran % (Auto) 0.2 (0.0-0.4) % Neut % (Auto) 78.2 H (45-73) % Lymph % (Auto) 12.5 L (20-40) % Stan[place]aus % (Auto) 6.8 (2-11) % Eos % (Auto) 2.0 (0-4) % Baso % (Auto) 0.3 (0-2) % Lymph # (Auto) 1.3 (1.2-4.9) X10*3/uL Stan[place]aus # (Auto) 0.7 (0.1-1.2) X10*3/uL Eos # (Auto) 0.2 (0.0-0.4) X10*3/uL Baso # (Auto) 0.0 (0.0-0.2) X10*3/uL Abs Immat Gran (auto) 0.02 (0.00-0.03) X10*3/uL Absolute Neuts (auto) 8.2 (2.0-8.3) x10*3/uL Absolute Nucleated RBC 0.000 (0.0-0.012) X10*3/uL Nucleated RBC % (auto) 0.0 (0.0-0.2) /100WBC Sodium 138 (135-145) mmol/L Potassium 3.7 (3.3-5.1) mmol/L Chloride 108 (96-108) mmol/L Carbon Dioxide 22 (22-29) mmol/L Anion Gap 12 (12-20) BUN 12 (9-16) mg/dL Creatinine 0.80 (0.5-1.4) mg/dL Estim Creat Clear Calc 103.5 Estimated GFR > 60 Random Glucose 90 (60-115) mg/dL Lactic Acid 3.1 H* (0.5-2.0) mmol/L Calcium 8.5 (8.4-10.2) mg/dL Total Bilirubin 0.3 (0.0-1.0) mg/dL AST 20 (5-31) U/L ALT 9 (0-31) U/L Alkaline Phosphatase 48 (39-117) U/L Total Protein 6.4 L (6.5-8.0) g/dL Albumin 3.7 (3.5-5.0) g/dL Beta HCG, Quant < 2 mIU/mL Ethyl Alcohol < 10 mg/dL Discharge Plan Discharge Clinical Impression: Generalized seizure Patient Disposition: Home, Self-Care Instructions: Recurrent Seizures in Adults (ED) Additional Instructions: You were seen today in the emergency department for the 2nd time in a month for seizures. I do think it is time for you to start him medications restriction some Keppra fortunately do not have any Neurology coverage here in our ER you do need to establish with somebody. If you have any other concerns please return to the ER. Prescriptions: New levetiracetam [Keppra] 500 mg tablet 500 mg PO BID Qty: 60 0RF No Action ParaGard T 380A 380 square mm intrauterine device intrauterine Referrals: [facility] Neuro[facility]Sleep [Provider Group] (Please call follow up for your seizure. If you have concerns please return to the ER.) Print Language: Palauan
--- NOTE | 2024-08-11 07:50 | PC.NURSE ---
Unable to obtain IV and labs at this time
[2024-08-11 07:59] LABS: MANUAL DIFF FLAG NO
[2024-08-11 08:01] LABS: Basophils Percent Auto 0.3 % (0-2); Eosinophils Absolute Auto 0.2 X10*3/uL (0.0-0.4); Hematocrit 39.4 % (37.0-47.0); Hemoglobin 13.2 g/dl (12.0-16.0); Imm Gran Abs Auto 0.02 X10*3/uL (0.00-0.03); Imm Gran Pct Auto 0.2 % (0.0-0.4); Lymphocytes Absolute Auto 1.3 X10*3/uL (1.2-4.9); Lymphocytes Percent Auto 12.5 % (20-40); Mean Corpuscular HGB Conc 33.5 g/dl (31.0-35.0); Mean Corpuscular Hemoglobin 31.2 pg (27.0-33.0); Mean Corpuscular Volume 93.1 fL (80.0-98.0); Mean Platelet Volume 8.6 fL (9.4-12.3); Monocytes Absolute Auto 0.7 X10*3/uL (0.1-1.2); Monocytes Percent Auto 6.8 % (2-11); Neutrophils Absolute Auto 8.2 x10*3/uL (2.0-8.3); Neutrophils Percent Auto 78.2 % (45-73); Platelet Count 285 X10*3/uL (160-400); Red Blood Count 4.23 X10*6/uL (4.20-5.50); Red Cell Distribution Width 12.6 % (11.0-16.0); White Blood Count 10.5 X10*3/uL (4.8-10.8)
[2024-08-11 08:15] LABS: Alanine Aminotransferase 9 U/L (0-31); Albumin Level 3.7 g/dL (3.5-5.0); Alkaline Phosphatase 48 U/L (39-117); Anion Gap 12 (12-20); Aspartate Amino Transferase 20 U/L (5-31); Bilirubin Total 0.3 mg/dL (0.0-1.0); Blood Urea Nitrogen 12 mg/dL (9-16); Calcium 8.5 mg/dL (8.4-10.2); Carbon Dioxide 22 mmol/L (22-29); Chloride 108 mmol/L (96-108); Creatinine Clr Calc Pharmacy 103.5; Estimated Glomerular Filt Rate > 60; Glucose Random 90 mg/dL (60-115); Potassium 3.7 mmol/L (3.3-5.1); Sodium 138 mmol/L (135-145); Total Protein 6.4 g/dL (6.5-8.0)
[2024-08-11 08:16] LABS: Ethanol < 10 mg/dL
[2024-08-11 08:33] LABS: HCG Quantitative < 2 mIU/mL
[2024-08-11 08:42] LABS: Lactic Acid 3.1 mmol/L (0.5-2.0)
[2024-08-11] MEDS: levETIRAcetam in NaCl (iso-os) 1,000 MG/100 ML PIGGYBACK 400 MG IV (08:42)
[2024-08-11 09:57] LABS: Reflex Lactate? Lactic Acid Added
[2024-08-11 10:13] VITALS: BP 116/79; PULSE 75; RESP 14; TEMP 36.2; O2SAT 97
[2024-08-11 10:43] VITALS: BP 116/79; PULSE 75; RESP 14; TEMP 36.2; O2SAT 97
== END 2024-08-11 10:44 | disposition home or self-care (01) ==
PROVIDERS: Emergency Provider Student in an Organized Health Care Education/Training Program; PCP Family Medicine
DX: G40.409 Other generalized epilepsy and epileptic syndromes, not intractable, without status epilepticus (principal); M25.511 Pain in right shoulder; Z79.899 Other long term (current) drug therapy
CPT/HCPCS: 36415; 73030; 80053; 80307; 83605; 84702; 85025; 93005; 96365; 99284; J1953

== ENCOUNTER → 2024-08-11 07:15 | Outpatient (BNV) | payer OTHER, SELFPAY | PROVIDERS: Emergency Provider Student in an Organized Health Care Education/Training Program; PCP Family Medicine; Visit Provider Internal Medicine | DX: R00.0 Tachycardia, unspecified (principal) | CPT/HCPCS: 93010 ==

== ENCOUNTER → 2024-08-11 07:35 | Outpatient (BNV) | payer OTHER, SELFPAY | PROVIDERS: Emergency Provider Student in an Organized Health Care Education/Training Program; PCP Family Medicine; Visit Provider Radiology Diagnostic Radiology | DX: M25.511 Pain in right shoulder (principal) | CPT/HCPCS: 73030 ==

== ENCOUNTER 2025-04-04 11:19 | Emergency (ER) | payer OTHER, SELFPAY ==
[2025-04-04 11:23] VITALS: BP 127/94; BP 134/80; PULSE 100; PULSE 110; RESP 15; TEMP 36.5; O2SAT 96; BMI 31.8
--- NOTE | 2025-04-04 11:29 | ECG_ITS ---
Test Reason : SIEZURE Blood Pressure : */* mmHG Vent. Rate : 95 BPM Atrial Rate : 95 BPM P-R Int : 132 ms QRS Dur : 88 ms QT Int : 350 ms P-R-T Axes : 31 27 32 degrees QTcB Int : 439 ms Sinus rhythm with marked sinus arrhythmia Otherwise normal ECG When compared with ECG of 11-Aug-2024 07:15, Nonspecific T wave abnormality no longer evident in Anterior leads Referred By: Generic ED Physician Electronically Signed By: MELE VALDES
[2025-04-04 11:53] LABS: MANUAL DIFF FLAG NO
[2025-04-04 11:55] LABS: Hematocrit 40.9 % (37.0-47.0); Hemoglobin 13.6 g/dl (12.0-16.0); Imm Gran Abs Auto 0.03 X10*3/uL (0.00-0.03); Imm Gran Pct Auto 0.3 % (0.0-0.4); Lymphocytes Absolute Auto 1.3 X10*3/uL (1.2-4.9); Mean Corpuscular HGB Conc 33.3 g/dl (31.0-35.0); Mean Corpuscular Hemoglobin 31.2 pg (27.0-33.0); Mean Corpuscular Volume 93.8 fL (80.0-98.0); NRBC Abs Auto 0.000 X10*3/uL (0.0-0.012); NRBC Pct Auto 0.0 /100WBC (0.0-0.2); Platelet Count 300 X10*3/uL (160-400); Red Blood Count 4.36 X10*6/uL (4.20-5.50); White Blood Count 10.1 X10*3/uL (4.8-10.8)
--- OUTSIDE RECORDS SUMMARY | 2025-04-04 12:09 | XMS_ITS | Encounter Summary ---
Author Organization [facility]erged With [facility] Address [address] [place] [id number] Phone Care Team Providers Care Fashion Stylist Name Role Phone Pcp, Unknown Primary Care Provider Unavailabl e Encounter Details Date Type Department Care Team (Late st Contact Info) Description 11/27/2024 Procedure [facility], [address] [address] Social History Tobacco Use Types Packs/Day Years Used Date Smoking Tobacco: Never Assessed Education Answer Date Recorded Are you interested in more education? Not on reji e 08/11/2024 Are you concerned about learning? Not on file 08/11/2024 No 08/11/2024 No 08/11/2024 Digital Access Answer Date Recorded No 08/11/2024 No 08/11/2024 Reliable internet access at home? Not on file 08/11/2024 Device with a working camera? Not on file Comments No Sex and Gender Information Value Date Recorded Sex Assigned at Not on file Legal Sex Female 11:48 AM EDT Gender Identity Not on file Sexual Orientation Not on file documented as of this encounter Plan of Treatment Upcoming Encounters Date Type Department Care Team (Late st Contact Info) Description 05/04/2025 9:30 AM EST Office Visit [facility] Neurology [address] [place] [address] Dann Rouse MD [address] [facility], [address] [place] [address] documented as of this encounter Visit Diagnoses Not on filedocumented in this encounter Care Teams Fashion Stylist Relationship Specialty Start Date End Date Pcp, Unknown PCP - General 08/11/24 documented as of this encounter Additional Source Comments The information contained in this document represents components of the legal health record. It is not the complete legal health record.[facility]
--- OUTSIDE RECORDS SUMMARY | 2025-04-04 12:09 | XMS_ITS | Clinical Summary ---
Author Organization [facility] Address [address] [place] [phone] Phone Care Team Providers Care Gsa Coordinator Name Role Phone Pcp, Unknown Primary Care Provider Unavailabl e Social History Tobacco Use Types Packs/Day Years [...] on file Sexual Orientation Not on file Last Filed Vital Signs Vital Sign Reading Time Taken Comments Blood Pressure - - Pulse - - Temperature - - Respiratory Rate - - Oxygen Saturation - - Inhaled Oxygen Concentration - - Weight 83.9 kg (185 lb) 12/12/2024 5:42 PM EDT Height 165.1 cm (5' 5 ) 12/12/2024 5:42 PM EDT Body Mass Index 30.79 12/12/2024 5:42 PM EDT Plan of Treatment Upcoming Encounters Date Type Department Care Team (Late st Contact Info) Description 05/04/2025 9:30 AM EST Office Visit [facility] Neurology [address] [place] [address] Dann Rouse MD [address] [facility] [place] [address] [email or web address] Health Maintenance Due Date Last Done Comments Adult Td,Tdap Booster 1988 DEPRESSION SCREENING 2000 SMOKING Hx and SMOKELESS TOB ACCO SCREENING 2001 HEPATITIS C SCREENING 2006 HIV ONE-TIME SCREENING (18-6 5 YEARS) 2006 PAP SMEAR 2009 SCREENING FOR DIABETES 11/10/2023 INFLUENZA VACCINE (#1) 2025 COVID-19 VACCINE (2024-2 6 season) 2025 HEPATITIS A VACCINES Aged Out No long er eligible based on patient's age to complete this topic HIB VACCINES Aged Out No longer eligi ble based on patient's age to complete this topic MENINGOCOCCAL VACCINES (ACWY) Aged Out No longer eligible based on patient's age to complete this topic MENINGOCOCCAL VACCINES (B) Aged Out N o longer eligible based on patient's age to complete this topic PNEUMOCOCCAL VACCINES (0-49 years) Aged Out No longer eligible based on patient's age to complete this topic Medical Devices Not on [place] [address] [place] [address] [place] [address] [place] [address] [place] [address] [place] [address] [address] [facility] [place] [address] Care Teams Gsa Coordinator Relationship Specialty Start Date End Date Pcp, Unknown PCP - General 08/11/24 Additional Source Comments The information contained in this document represents components of the legal health record. It is not the complete legal health record.[facility]
[2025-04-04 12:12] LABS: Alanine Aminotransferase 10 U/L (0-31); Albumin Level 4.3 g/dL (3.5-5.0); Alkaline Phosphatase 65 U/L (39-117); Anion Gap 15 (12-20); Aspartate Amino Transferase 25 U/L (5-31); Blood Urea Nitrogen 9 mg/dL (9-16); Calcium 8.5 mg/dL (8.4-10.2); Carbon Dioxide 19 mmol/L (22-29); Chloride 111 mmol/L (96-108); Creatinine Clr Calc Pharmacy 97.2; Estimated Glomerular Filt Rate > 60; Magnesium 2.0 mg/dL (1.6-2.6); Potassium 4.1 mmol/L (3.3-5.1); Sodium 141 mmol/L (135-145); Total Protein 7.0 g/dL (6.5-8.0)
[2025-04-04 12:15] VITALS: BP 121/84; PULSE 95; RESP 17; O2SAT 95
--- NOTE | 2025-04-04 14:05 | ED.SEIZURE ---
HPI - Seizure General Chief Complaint: Seizure Stated Complaint: WIT SZ,NO MEDS,POST ICTAL PER EMS Time Seen by Provider: 04/04/25 11:44 Source: patient, family, EMS and old records reviewed Mode of arrival: EMS Limitations: no limitations History of Present Illness ED Provider: Dr. Franca Myrick HPI Narrative: 34-year-old female with a history of nonepileptic seizures presenting with seizure activity that occurred at home immediately prior to arrival. Patient states that her boyfriend witnessed her have seizure activity. Admits they were in the middle of an argument when this activity occurred. Boyfriend describes activity as full body shaking, unconsciousness and difficult to arouse. This reportedly lasted about 2 minutes. Patient did bite her tongue. No loss of bowel or bladder control. Admits to history of nonepileptic seizures where she takes CBD oil. She does not take any other antiepileptics. Sees a neurologist in [facility] for this (Dr. Rouse). Evidently had an MRI and EEG that was reportedly normal and he does not feel that she needed to be on any other antiepileptics. Otherwise, patient admits that she has been feeling well lately. She did consume alcohol last night which is a trigger for her nonepileptic seizure activity. Denies recent illness including fevers or chills, cough or cold-type symptoms, chest pain, difficulty breathing, abdominal pain, nausea, vomiting, bowel changes or urinary complaints. Related Data Home Medications ?Medication ?Instructions ?Recorded ?Confirmed copper 380 square mm intrauterine intrauterine 06/13/21 11/27/23 device (ParaGard T 380A) Previous Rx's ?Medication ?Instructions ?Recorded levetiracetam 500 mg tablet 500 mg PO BID #60 tabs 08/11/24 (Keppra) Allergies Allergy/AdvReac Type Severity Reaction Status Date / Time No Known Allergies (No Known Allergy Verified 04/04/25 11:27 Allergies*) Review of Systems Review of Systems: as per HPI, full review of systems performed and negative but for the above mentioned pertinent positives and negatives. [facility] Family History Family History Paternal Grandmother Colon cancer Social History Social History Alcohol intake: current Alcohol intake frequency: holidays/special occasions only Patient Tobacco Use Status: Never used Tobacco Smoked in Last 30 Days: Yes Use of substances other than those prescribed or required for medical reasons: Yes Substance Use Type: Marijuana Advance Directives: No Advance Directives Information Provided: Yes Patient : No Physical Exam Exam: Exam: GENERAL: Well-Appearing, conversant, no acute distress. SKIN: Normal skin color for ethnicity, warm, dry, no rashes noted. HEENT:? Normocephalic, atraumatic, no stridor, posterior oropharynx nonerythematous, dentition intact, EOMI. NECK: Soft, supple, full ROM, midline structures nontender, no step-offs, no deformities, no lymphadenopathy. CHEST: Heart regular rate and rhythm, no murmurs, symmetric chest rise and fall. PULMONARY: Clear to auscultation bilaterally, no labored breathing, no wheezes/rhales/rhonchi. ABDOMINAL: Soft, nondistended, nontender, positive bowel sounds in all quadrants. : Deferred. MUSCULOSKELETAL: Normal tone, full range of motion, no deformities, no peripheral edema. NEURO: Alert and oriented x3, CN II through XII intact, equal strength and sensation bilateral upper and lower extremities, no focal neurologic deficits.? PSYCHIATRIC: Normal affect, fluid speech, good eye contact and appropriate demeanor. Vital Signs: Vital Signs: Last Vital Signs Temp 97.7 F 04/04/25 11:23 Pulse 78 04/04/25 14:09 Resp 24 H 04/04/25 14:09 BP 133/84 04/04/25 14:09 Pulse Ox 96 04/04/25 14:09 O2 Del Method Room Air 04/04/25 14:09 BMI result Body Mass Index 31.8 Medications Administered Discontinued Medications Generic Name Dose Route Start Last Admin Trade Name Freq PRN Reason Stop Dose Admin Ibuprofen 600 mg 04/04/25 14:02 04/04/25 14:16 Ibuprofen 600 Mg Tablet PO 04/04/25 14:03 600 mg ONCE ONE Administration Medical Decision Making Medical Decision Making [facility] Narrative: Patient presents today with chief complaint of seizure activity. Differential diagnosis includes breakthrough seizure, medication noncompliance, intracranial pathology such as hemorrhage or embolism, infectious process such as meningitis, stimulant use or drug toxicity, hyperthyroidism, electrolyte abnormality, nonepileptic seizure activity (psychogenic seizure activity), among many others. Blood work today is reassuring. Patient appears well and has a normal neurologic exam. Suspect nonepileptic seizure activity today though she did bite her tongue. We had an extensive discussion regarding initiation of antiepileptics versus continuing CBD oil treatment versus following up with her neurologist as an outpatient. Patient opted to follow up as an outpatient. Encouraged her not to drive until she sees in the neurologist. Using shared decision making, plan for discharge home to follow-up with primary care and/or specialist. Patient understands and agrees with plan for discharge. Discharged home in stable condition. Differential Diagnosis Differential Diagnoses: The differential diagnosis associated with the presentation includes (As above) Admission/Observation Consideration of admission/observation: Escalation of care including admission/observation considered Lab Data MDM Lab Attestation statement: I reviewed the patient's lab results. 04/04/25 11:48 04/04/25 11:48 Labs: Lab Results 04/04/25 04/04/25 04/04/25 Range/Units 11:48 11:48 11:48 WBC 10.1 (4.8-10.8) X10*3/uL RBC 4.36 (4.20-5.50) X10*6/uL Hgb 13.6 (12.0-16.0) g/dl Hct 40.9 (37.0-47.0) % MCV 93.8 (80.0-98.0) fL MCH 31.2 (27.0-33.0) pg MCHC 33.3 (31.0-35.0) g/dl RDW 13.2 (11.0-16.0) % Plt Count 300 (160-400) X10*3/uL MPV 8.2 L (9.4-12.3) fL Immature Gran % (Auto) 0.3 (0.0-0.4) % Neut % (Auto) 77.1 H (45-73) % Lymph % (Auto) 12.9 L (20-40) % Smith % (Auto) 6.4 (2-11) % Eos % (Auto) 2.9 (0-4) % Baso % (Auto) 0.4 (0-2) % Lymph # (Auto) 1.3 (1.2-4.9) X10*3/uL Smith # (Auto) 0.7 (0.1-1.2) X10*3/uL Eos # (Auto) 0.3 (0.0-0.4) X10*3/uL Baso # (Auto) 0.0 (0.0-0.2) X10*3/uL Abs Immat Gran (auto) 0.03 (0.00-0.03) X10*3/uL Absolute Neuts (auto) 7.8 (2.0-8.3) x10*3/uL Absolute Nucleated RBC 0.000 (0.0-0.012) X10*3/uL Nucleated RBC % (auto) 0.0 (0.0-0.2) /100WBC Sodium 141 (135-145) mmol/L Potassium 4.1 (3.3-5.1) mmol/L Chloride 111 H (96-108) mmol/L Carbon Dioxide 19 L (22-29) mmol/L Anion Gap 15 (12-20) BUN 9 (9-16) mg/dL Creatinine 0.87 (0.5-1.4) mg/dL Estim Creat Clear Calc 97.2 Estimated GFR > 60 Random Glucose 95 (60-115) mg/dL Calcium 8.5 (8.4-10.2) mg/dL Magnesium 2.0 Cancelled (1.6-2.6) mg/dL Total Bilirubin 0.2 (0.0-1.0) mg/dL AST 25 (5-31) U/L ALT 10 (0-31) U/L Alkaline Phosphatase 65 (39-117) U/L Total Protein 7.0 (6.5-8.0) g/dL Albumin 4.3 (3.5-5.0) g/dL Ethyl Alcohol < 10 Cancelled mg/dL Independent Interpretation I performed an independent interpretation of an: EKG Interpretation: My independent interpretation of the ECG reveals normal sinus rhythm with rate of 95, normal axis, normal intervals, no ST elevations or depressions to suggest ischemic changes, relatively unchanged from previous on 08/11/2024. Independent Historian Clinical information obtained from an independent historian. History obtained from or confirmed by: Spouse and EMS External Record Review External record reviewed: Inpatient record Prescription Management I considered prescription management with: Other (Mood stabilizers such as Lamictal) Chronic Conditions Patient?s care impacted by: Other (Nonepileptic seizures) Discharge Plan Discharge Clinical Impression: Breakthrough seizure, Acute reaction to stress Patient Disposition: Home, Self-Care Instructions: Nonepileptic Seizures (ED) Additional Instructions: Follow-up with your neurologist as soon as possible. Do not drive until you speak with the neurologist. Continue using CBD oils as needed for seizure activity. Avoid alcohol. Return to the hospital with any new or worsening symptoms including: Fevers greater than 100?, severe headaches, any new symptom that concerns you. Call 911 with any medical emergency. Prescriptions: No Action levetiracetam [Keppra] 500 mg tablet 500 mg PO BID Qty: 60 0RF ParaGard T 380A 380 square mm intrauterine device intrauterine Referrals: Dann Rouse MD [Physician, Psychology] Clinical Impression: Breakthrough seizure Print Language: [place]
[2025-04-04 14:09] VITALS: BP 133/84; PULSE 78; RESP 24; O2SAT 96
[2025-04-04 14:55] VITALS: BP 132/92; PULSE 90; RESP 18; TEMP 36.8; O2SAT 95
== END 2025-04-04 15:00 | disposition home or self-care (01) ==
PROVIDERS: Emergency Provider Emergency Medicine
DX: R56.9 Unspecified convulsions (principal); F43.9 Reaction to severe stress, unspecified; I49.8 Other specified cardiac arrhythmias; Z79.899 Other long term (current) drug therapy; Z51.81 Encounter for therapeutic drug level monitoring
CPT/HCPCS: 36415; 80053; 80307; 83735; 85025; 93005; 99283; 99285

== ENCOUNTER → 2025-04-04 11:29 | Outpatient (BNV) | payer OTHER, SELFPAY | PROVIDERS: Emergency Provider Emergency Medicine; Visit Provider Internal Medicine | DX: R56.9 Unspecified convulsions (principal) | CPT/HCPCS: 93010 ==